=== PATIENT | female | born 1955 | race Caucasian/White ===

== ENCOUNTER 2017-06-02 08:32 | Day surgery (SDC) | payer BC ==
[2017-05-28 09:36] VITALS: BMI 34.7
[~2017-06-02 08:32] MED LIST: CLINDAMYCIN 900 MG in DEXTROSE 5% IN WATER 50 ML IVPB ONE; DEXAMETHASONE SOD PHOSPHATE 10 MG/ML 1 ML VIAL IV ONE; LACTATED RINGERS 1,000 ML IV SCH; LIDOCAINE 1% 20 ML VIAL (10MG/ML) FOR IV START INTRADERMA PRN; MIDAZOLAM 2 MG/2 ML VIAL IV PRN; MORPHINE SULFATE 4 MG/0.8 ML SYRINGE (INJ) IV PRN; ONDANSETRON ODT 4 MG TAB PO ONE; SCOPOLAMINE 1.5MG/72HR PATCH TRANSDERM ONE; fentaNYL (PF) 50 MCG/ML 20 ML VIAL IVP PRN
[2017-06-02] MEDS ORDERED: ONDANSETRON 4 MG/2 ML VIAL IVP ONE (09:13)
[2017-06-02 09:22] LABS: Potassium 4.3 mmol/L (3.5-5.1)
[2017-06-02] MEDS ORDERED: MIDAZOLAM 2 MG/2 ML VIAL ONE ×2 (09:40→10:44)
[2017-06-02] MEDS ORDERED: fentaNYL (PF) 50 MCG/ML 2 ML AMP ONE (09:40)
[2017-06-02] MEDS ORDERED: MORPHINE SULFATE 4 MG/0.8 ML SYRINGE (INJ) IVP PRN ×3 (10:27)
[2017-06-02] MEDS ORDERED: TEMAZEPAM 15 MG CAP PO PRN (10:27)
[2017-06-02] MEDS ORDERED: SENNOSIDES-DOCUSATE SODIUM 1 EACH TAB PO PRN (10:27)
[2017-06-02] MEDS ORDERED: HYDROcodone/APAP 5-325MG 1 EACH TAB PO PRN ×2 (10:27)
[2017-06-02] MEDS ORDERED: hydrOXYzine PAMOATE 25 MG CAP PO PRN (10:27)
[2017-06-02] MEDS ORDERED: ONDANSETRON 4 MG/2 ML VIAL IVP PRN (10:27)
[2017-06-02] MEDS ORDERED: LACTATED RINGERS 1,000 ML IV SCH (10:30)
[2017-06-02] MEDS ORDERED: LIDOCAINE 1% INJ 10MG/ML (20 ML MDV) ONE (10:44)
[2017-06-02] MEDS ORDERED: PHENYLEPHRINE-0.9% NACL SYG 1 MG/10 ML SYRINGE ONE (10:44)
[2017-06-02] MEDS ORDERED: LABETALOL 5 MG/ML VIAL MDV ONE (10:44)
[2017-06-02] MEDS ORDERED: PROPOFOL 10 MG/ML 20 ML VIAL IV ONE (10:44)
[2017-06-02] MEDS ORDERED: ROPIVACAINE 5 MG/ML 30 ML VIAL ONE (10:44)
[2017-06-02] MEDS ORDERED: ePHEDrine SULFATE/0.9% NACL/PF 50 MG/5 ML SYRINGE IV ONE (10:44)
[2017-06-02] MEDS ORDERED: SUCCINYLCHOLINE CHLORIDE 100 MG/5 ML SYR IV ONE (10:44)
[2017-06-02] MEDS ORDERED: LACTATED RINGERS 1,000 ML IV ONE (11:10)
--- NOTE | 2017-06-02 12:30 | P.ONQ ---
Anesthesiology Proc Note - PNB - Peripheral Nerve Block Performed Left Interscalene Time Out Performed: Yes (09:35) Indication: Acute Post-Operative Pain, Requested by physician (Dr Khoury) Sedation Type: Sedate with meaningful contact maintained Preparation: Sterile Prep Position: Supine Catheter: None Needle Types: Other (see comment) (Leia) Needle Size: 50mm (2") Needle Gauge: 21 Technique: Ultrasound (0.5% Ropivacaine 12cc, 2.0% Lidocaine 12cc, 1:100,00 epi) Blood Aspirated: No Pain Paresthesia on Injection Noted: No Resistance on Injection: Normal Events: Uneventful and Well Tolerated
[2017-06-02 14:01] LABS: ALT 19 U/L (9-52); AST 19 U/L (14-36); Albumin 3.7 g/dL (3.5-5.0); Alkaline Phosphatase 66 U/L (38-126); Anion Gap 11 mmol/L; Blood Urea Nitrogen 14 mg/dL (7-17); Calcium 9.2 mg/dL (8.4-10.2); Carbon Dioxide 24 mmol/L (22-30); Chloride 108 mmol/L (98-107); Glucose 99 mg/dL (74-99); Sodium 143 mmol/L (137-145); Total Bilirubin 0.7 mg/dL (0.2-1.3); Total Protein 6.1 g/dL (6.3-8.2)
[2017-06-02 14:24] LABS: Basophils % (A) 0 %; Eosinophils % (A) 0 %; HCT 41.3 % (34.0-46.0); HGB 13.4 gm/dL (11.4-16.0); Lymphocytes # (A) 0.6 k/uL (1.0-4.8); Lymphocytes % (A) 6 %; MCH 31.5 pg (25.0-35.0); MCHC 32.5 g/dL (31.0-37.0); MCV 96.8 fL (80.0-100.0); Mean Platelet Volume 6.9; Monocytes # (A) 0.1 k/uL (0-1.0); Monocytes % (A) 1 %; Neutrophils # (A) 9.2 k/uL (1.3-7.7); Neutrophils % (A) 93 %; Platelet Count 226 k/uL (150-450); RBC 4.27 m/uL (3.80-5.40); RDW 13.5 % (11.5-15.5); WBC 9.9 k/uL (3.8-10.6)
--- NOTE | 2017-06-02 15:14 | HP ---
HISTORY AND PHYSICAL CHIEF COMPLAINTS: Hypertension, EKG changes. HISTORY OF PRESENT ILLNESS: This is a 61-year-old woman with a past medical history of no significant cardiovascular illness, had apparently a hiatal hernia with diaphragmatic eventration surgery in [facility] while the patient had multiple cardiac testing. The patient followed with Dr. Ta in the outpatient setting. and Dr. Khoury is planning to do a left rotator cuff repair today. The patient received ropivacaine and lidocaine plus epinephrine for regional anesthesia. Subsequently, patient developed blood pressure 255/150. The patient's preop blood pressure wass systolic 118.The patient was given a dose of labetalol, which brought the BP down to 80 systolic. Patient was given ephedrine and patient also had EKG changes in the form of ST depression in the monitor during that time. 12 lead EKG did not show any marked changes. The patient admitted for observation at this time. There is no history of fever, rigors. No history of headache, loss of consciousness. No chest pain. No palpitations. PAST MEDICAL HISTORY: History of hiatal hernia repair, history of tonsillectomy, history of DJD, anxiety. MEDICATIONS: Prior to admission include none. ALLERGIES: PENICILLIN, FAMILY HISTORY: No history of heart disease or strokes in the family. SOCIAL HISTORY: History of smoking. Occasional alcohol intake. REVIEW OF SYSTEMS: HEENT: No diminished hearing or vision. CARDIOVASCULAR: As mentioned earlier. RESPIRATORY: As mentioned earlier. GI: No nausea. : No dysuria/ NERVOUS SYSTEM: No numbness, weakness. ALLERGY/IMMUNOLOGY: No asthma or hay fever. MUSCULOSKELETAL: As mentioned earlier. HEMATOLOGY: No history of anemia. ENDOCRINE: No history of diabetes or hypothyroidism. CONSTITUTIONAL: As mentioned earlier. PHYSICAL EXAM: Alert and oriented x3. Blood pressure 114/57, respirations 16, temperature 98.8 , pulse ox 94% on 2 L. HEENT is mucosa moist, neck is no jugular venous distention. No lymph nodes. CARDIOVASCULAR: S1,S2. RESPIRATORY: Breath sounds diminished at the bases, no rhonchi, no crackles. ABDOMEN: Soft, nontender. No mass palpable. LEGS: No edema, no cyanosis. LYMPHATICS: None. SKIN: No ulcer, rash or bleeding. Left shoulder status post regional anesthesia. Left arm is still numb and weak and tired. LAB INVESTIGATIONS: Potassium 4.2. Other labs are ending. LABS: Pending, ASSESSMENT: 1. Hypertensive urgency as well as labile hypertension, hypotension post regional anesthesia with ropivacaine, lidocaine and epinephrine. 2. ST depressions in the EKG. 3. History of hiatal hernia repair apparently and as well as full cardiac workup at [facility]. 4. History of degenerative joint disease. 5. History of Yris fundoplication. 6. Anxiety. 7. History nicotine dependence. RECOMMENDATIONS AND DISCUSSION: This 61-year-old woman presented with multiple complex medical issues. Will monitor the patient closely, continue with the current management and symptomatic treatment. As this time, I recommend monitor closely observation, EKG troponins. Cardiology evaluation. Otherwise, symptomatic treatment will be provided. Will also obtain records from [facility]. Prognosis guarded. Further recommendations to follow. A copy of this will be forwarded to Dr. Ta who is the primary physician. MMMICKEYL / CHINTANN: [id number] / MTDD
[2017-06-02] MEDS ORDERED: CLINDAMYCIN 900 MG in DEXTROSE 5% IN WATER 50 ML IVPB SCH ×2 (18:00)
[2017-06-03 07:47] LABS: Basophils % (A) 0 %; Eosinophils # (A) 0.1 k/uL (0-0.7); Eosinophils % (A) 0 %; HCT 37.1 % (34.0-46.0); Lymphocytes # (A) 1.5 k/uL (1.0-4.8); Lymphocytes % (A) 10 %; MCH 31.8 pg (25.0-35.0); MCHC 32.3 g/dL (31.0-37.0); MCV 98.5 fL (80.0-100.0); Mean Platelet Volume 7.2; Monocytes # (A) 0.7 k/uL (0-1.0); Monocytes % (A) 5 %; Neutrophils # (A) 12.8 k/uL (1.3-7.7); Neutrophils % (A) 84 %; Platelet Count 239 k/uL (150-450); RBC 3.76 m/uL (3.80-5.40); RDW 13.6 % (11.5-15.5); WBC 15.2 k/uL (3.8-10.6)
[2017-06-03 08:00] VITALS: PULSE 78; RESP 18
[2017-06-03 08:17] LABS: Anion Gap 10 mmol/L; Blood Urea Nitrogen 14 mg/dL (7-17); Calcium 9.4 mg/dL (8.4-10.2); Carbon Dioxide 29 mmol/L (22-30); Chloride 107 mmol/L (98-107); Cholesterol 168 mg/dL (<200); Glucose 115 mg/dL (74-99); HDL Cholesterol 53 mg/dL (40-60); LDL Cholesterol,Calculated 103 mg/dL (0-99); Potassium 4.1 mmol/L (3.5-5.1); Sodium 146 mmol/L (137-145); Triglycerides 61 mg/dL (<150)
--- NOTE | 2017-06-03 11:06 | ECHOF ---
Referral Reason:hypertension MEASUREMENTS -------- HEIGHT: 157.5 cm WEIGHT: 86.2 kg BP: 139/63 RVIDd: 2.5 cm (< 3.3) IVSd: 1.2 cm (0.6 - 1.1) LVIDd: 4.1 cm (3.9 - 5.3) LVPWd: 1.2 cm (0.6 - 1.1) IVSs: 1.7 cm LVIDs: 2.8 cm LVPWs: 1.6 cm LA Diam: 3.6 cm (2.7 - 3.8) Ao Diam: 2.8 cm (2.0 - 3.7) AV Cusp: 1.9 cm (1.5 - 2.6) LA Diam: 3.5 cm (2.7 - 3.8) MV EXCURSION: 21.866 mm (> 18.000) MV EF SLOPE: 83 mm/s (70 - 150) EPSS: 0.3 cm MV E Orlando: 0.49 m/s MV DecT: 263 ms MV A [place]: 1.10 m/s MV E/A Ratio: 0.44 AV maxP.71 mmHg AV meanP.37 mmHg RAP: 5.00 mmHg RVSP: 16.94 mmHg FINDINGS -------- Sinus rhythm. This was a technically adequate study. The left ventricular size is normal. There is mild concentric left ventricular hypertrophy. Overa ll left ventricular systolic function is normal with, an EF between 55 - 60 %. The right ventricle is normal in size. The left atrial size is normal. The right atrial size is normal. There is mild aortic valve sclerosis. There is mild aortic stenosis present. Peak/mean gradient a cross the Aortic Valve is 20.71mmHg / 9.37mmHg. Mild mitral annular calcification present. Mild mitral regurgitation is present. Mild tricuspid regurgitation present. There is no evidence of pulmonary hypertension. The right v entricular systolic pressure, as measured by Doppler, is 16.94mmHg. Trace/mild (physiologic) pulmonic regurgitation. The aortic root size is normal. There is no pericardial effusion. CONCLUSIONS -------- 1. The left ventricular size is normal. 2. There is mild concentric left ventricular hypertrophy. 3. Overall left ventricular systolic function is normal with, an EF between 55 - 60 %. 4. There is mild aortic valve sclerosis. 5. There is mild aortic stenosis present. 6. Peak/mean gradient across the Aortic Valve is 20.71mmHg / 9.37mmHg. 7. Mild mitral annular calcification present. 8. Mild mitral regurgitation is present. 9. Mild tricuspid regurgitation present. 10. There is no evidence of pulmonary hypertension. 11. The right ventricular systolic pressure, as measured by Doppler, is 16.94mmHg. 12. Trace/mild (physiologic) pulmonic regurgitation. 13. The aortic root size is normal. 14. There is no pericardial effusion. PBX MECHANIC: Ledy Fuentes RDCS
[2017-06-03 11:54] VITALS: BP 120/72; TEMP 98.7
--- NOTE | 2017-06-03 12:12 | P.CRDCN ---
History of Present Illness Consult date: 06/03/17 History of present illness: Mrs. Car is a pleasant 61-year-old female past medical history significant for chronic tobacco use. She denies history of coronary artery disease, hypertension or dyslipidemia. She was scheduled to undergo rotator cuff repair yesterday with Dr. Khoury. She was taken into the OR and given ropivacaine, lidocaine and epinephrine for regional anesthesia. Subsequently her blood pressure went up to 255/[address] depression was noted on telemetry in lead II. Labetolol was administered and her blood pressure went down to [address] depression resolved. EKG was obtained and ST depression was resolved. She was sleeping at the time of all this and is unable to verbalize any symptoms at all. Upon waking up she denies symptoms of chest pain, shortness of breath, dizziness, palpitations, nausea, vomiting or diaphoresis. She states she underwent surgery at [place] last year around and underwent stress testing and echocardiolgraphy at that time which was unremarkable. Telemetry tracings since the event have been unremarkable, repeat EKG shows no signs of ST depression and is sinus mechanism. Blood pressures have been well controlled. Laboratory data reviewed, WBC 15.2, hemoglobin 12.0, platelets 239, sodium 146, potassium 4.1, cardiac enzymes negative 2, LDL 103. She takes no daily medications. Review of Systems At the time of my exam: CONSTITUTIONAL: Denies fever. Denies chills. EYES: Denies blurred vision. Denies vision changes. Denies eye pain. EARS, NOSE, MOUTH & THROAT: Denies headache. Denies sore throat. Denies ear pain. CARDIOVASCULAR: Denies chest pain. Denies shortness of breath. Denies orthopnea. Denies PND. Denies palpitations. RESPIRATORY: Denies cough. GASTROINTESTINAL: Denies abdominal pain. Denies diarrhea. Denies constipation. Denies nausea. Denies vomiting. MUSCULOSKELETAL: Denies myalgias. INTEGUMENTARY: Denies pruitis. Denies rash. NEUROLOGIC: Denies numbness. Denies tingling. Denies weakness. PSYCHIATRIC: Denies anxiety. Denies depression. ENDOCRINE: Denies fatigue. Denies weight change. Denies polydipsia. Denies polyurina. GENITOURINARY: Denies burning, hematuria or urgency with micturation. HEMATOLOGIC: Denies history of anemia. Denies bleeding. Past Medical History Past Medical History: No Reported History History of Any Multi-Drug Resistant Organisms: None Reported Past Surgical History: Orthopedic Surgery, Tonsillectomy Additional Past Surgical History / Comment(s): RT ROTATOR CUFF REPAIR. RT CATARACT REMOVED. WILLIAMS PROCEDURE. COLONOSCOPY AND EGD Past Anesthesia/Blood Transfusion Reactions: No Reported Reaction Past Psychological History: Anxiety Additional Psychological History / Comment(s): NOT CURRENTLY ON ANY MEDS Smoking Status: Current every day smoker Past Alcohol Use History: Occasional Additional Past Alcohol Use History / Comment(s): SMOKES 1PPD FROM AGE 16 TO 36 QUIT FOR 10 YEARS AND STARTED UP AGAIN. TRYING TO QUIT. TO GET NICOTINE PATCH FROM DOCTOR Past Drug Use History: None Reported - Past Family History Mother Family Medical History: No Reported History Medications and Allergies Home Medications Medication Instructions Recorded Confirmed Type Multivitamins, Thera [Multivitamin 1 tab PO DAILY 06/02/17 06/02/17 History (formulary)] Allergies Allergy/AdvReac Type Severity Reaction Status Date / Time Penicillins Allergy Anaphylaxis Verified 06/02/17 08:50 Physical Exam Vitals: Vital Signs Temp Pulse Resp BP BP Pulse Ox 06/03/17 11:20 98.7 F 78 18 120/72 98 06/03/17 07:30 97.9 F 78 18 149/59 95 06/03/17 03:51 84 16 06/03/17 03:44 98.2 F 87 16 124/61 96 06/03/17 00:00 94 18 06/02/17 23:56 99.0 F 82 18 135/68 96 06/02/17 20:00 100 16 06/02/17 19:48 98.9 F 100 16 136/65 95 06/02/17 15:28 88 16 118/56 06/02/17 14:00 84 136/61 06/02/17 13:45 78 136/61 94 L 06/02/17 13:30 83 142/64 94 L 06/02/17 13:15 82 141/74 93 L 06/02/17 12:45 75 16 122/60 96 06/02/17 12:32 73 16 115/59 95 06/02/17 12:19 76 16 114/57 94 L 06/02/17 12:00 80 16 122/73 94 L Intake and Output 06/02/17 06/03/17 06/03/17 22:59 06:59 14:59 Intake Total 936 150 Balance 936 150 Intake: Oral 936 150 Other: Voiding Method Toilet Toilet # Voids 2 2 Blood pressure 149/59 heart rate 78 afebrile maintaining oxygen saturation on room air. GENERAL: This is a 61-year-old female in no apparent distress at the time of my examination. HEENT: Head is atraumatic, normocephalic. Pupils are equal, round. Sclerae anicteric. Conjunctivae are clear. Mucous membranes of the mouth are moist. Neck is supple. There is no jugular venous distention. No carotid bruit is heard. LUNGS: Clear to auscultation no wheezes, rales or rhonchi. No chest wall tenderness is noted on palpation or with deep breathing. HEART: Regular rate and rhythm without murmurs, rubs or gallops. S1 and S2 heard. ABDOMEN: Soft, nontender. Bowel sounds are heard. No organomegaly noted. EXTREMITIES: No evidence of peripheral edema and no calf tenderness noted. VASCULAR: Radial and dorsalis pedis pulses palpated, no evidence of clubbing. NEUROLOGIC: Patient is awake, alert and oriented x3. Results 06/03/17 07:05 06/03/17 07:05 Cardiac Enzymes 06/02/17 06/02/17 06/03/17 Range/Units 09:00 09:00 07:05 AST 19 (14-36) U/L Troponin I <0.012 <0.012 (0.000-0.034) ng/mL Lipids 06/03/17 Range/Units 07:05 Triglycerides 61 (<150) mg/dL Cholesterol 168 (<200) mg/dL HDL Cholesterol 53 (40-60) mg/dL CBC 06/02/17 06/03/17 Range/Units 13:54 07:05 WBC 9.9 15.2 H (3.8-10.6) k/uL RBC 4.27 3.76 L (3.80-5.40) m/uL Hgb 13.4 12.0 (11.4-16.0) gm/dL Hct 41.3 37.1 (34.0-46.0) % Plt Count 226 239 (150-450) k/uL Comprehensive Metabolic Panel 06/02/17 06/03/17 Range/Units 09:00 07:05 Sodium 143 146 H (137-145) mmol/L Potassium 4.3 4.1 (3.5-5.1) mmol/L Chloride 108 H 107 (98-107) mmol/L Carbon Dioxide 24 29 (22-30) mmol/L BUN 14 14 (7-17) mg/dL Creatinine 0.78 0.80 (0.52-1.04) mg/dL Glucose 99 115 H (74-99) mg/dL Calcium 9.2 9.4 (8.4-10.2) mg/dL AST 19 (14-36) U/L ALT 19 (9-52) U/L Alkaline Phosphatase 66 (38-126) U/L Total Protein 6.1 L (6.3-8.2) g/dL Albumin 3.7 (3.5-5.0) g/dL Current Medications Generic Name Dose Route Start Last Admin Trade Name Freq PRN Reason Stop Dose Admin Lidocaine HCl 0.1 ml 06/02/17 05:28 06/02/17 09:12 .Xylocaine 1% Inj (10mg/Ml) For Iv Start INTRADERMA 0.1 ml PER PROTOCOL PRN Administration IV Start Intake and Output 06/02/17 06/03/17 06/03/17 22:59 06:59 14:59 Intake Total 936 150 Balance 936 150 Intake: Oral 936 150 Other: Voiding Method Toilet Toilet # Voids 2 2 06/03/17 07:05 06/03/17 07:05 Assessment and Plan Assessment: ASSESSMENT 1. Isolated incident of elevated blood pressure, resolved with labetolol 2. ST depression in OR during elevated blood pressure episode after induction of anesthesia 3. Chronic tobacco use PLAN Obtain 2D echocardiogram and doppler study to assess cardiac structure and function. Remote incident of ST depression related to extremely elevated blood pressure that resolved quickly. Stable from a cardiac perspective, stress echocardiogram will be performed within a few days in the office as an outpatient. Plan has been discussed with the patient. Smoking cessation discussed and strongly recommended. Thank you kindly for this consultation. The above impression and plan of care have been discussed and directed by the signing physician. Marianna Eid, nurse practitioner, acting as scribe for signing physician.
--- NOTE | 2017-06-04 11:33 | DS ---
DISCHARGE SUMMARY FINAL DIAGNOSES: 1. Hypertensive urgency as well as labile hypertension with hypotension, status post regional anesthesia with ropivacaine, lidocaine and epinephrine. 2. History of paraesophageal hiatal hernia repair as well as full cardiac workup at [facility]. 3. History of degenerative joint disease. 4. History of Yris fundoplication. 5. Anxiety. 6. History of nicotine dependence. DISCHARGE DISPOSITION: The patient will be discharged in stable condition with guarded prognosis. Cardiology cleared the patient for discharge. HISTORY OF PRESENT ILLNESS: This 61-year-old woman with past medical history of multiple medical problems was admitted with hypertensive urgency as well as CT changes during the anesthesia injection. The patient was monitored closely. Troponins are negative. Patient symptomatic and Cardiology recommended outpatient stress test. On exam, vitals are stable. CARDIOVASCULAR SYSTEM: S1, S2 muffled. ABDOMEN: Soft. NERVOUS SYSTEM: No focal deficit. DISCHARGE ADVICE AND MEDICATIONS: 1. Diet is cardiac. 2. Activity limited until followup. 3. Follow up with primary physician in 2-3 days. 4. Follow up with assurance analyst as recommended. 5. Continue multivitamins 1 p.o. daily. 6. Resume the home medications. 7. Follow up with Dr. Khoury for further recommendations for surgery after the cardiac workup. Once again, the patient will be discharged in stable condition with guarded prognosis. MMODL / IJN: [id number] / RIKI
--- NOTE | 2017-06-04 12:00 | CONS ---
CONSULTATION Ms. Car was in the surgical suite and left shoulder. During the in preparation on the surgical table, she had cardiopulmonary situation and in view of the drop in the blood pressure and associated abnormalities, the surgery was cancelled. She is admitted for further evaluation by the Department of Cardiology and will be rescheduled at further convenience for her following this evaluation per the . MMODL / IJN: [id number] /
== END 2017-06-03 13:50 | disposition home or self-care (01) ==
LOC: OR 08:32 → EDSTATUS 10:55 → 3OBS 11:59 → OR 06-03 13:50
PROVIDERS: ATTEND Orthopaedic Surgery
DX: I16.0 Hypertensive urgency (principal); Z53.8 Procedure and treatment not carried out for other reasons; I44.0 Atrioventricular block, first degree; I08.3 Combined rheumatic disorders of mitral, aortic and tricuspid valves; S43.422A Sprain of left rotator cuff capsule, initial encounter; X58.XXXA Exposure to other specified factors, initial encounter; M75.42 Impingement syndrome of left shoulder; M65.812 Other synovitis and tenosynovitis, left shoulder; M75.52 Bursitis of left shoulder; M75.22 Bicipital tendinitis, left shoulder; M19.012 Primary osteoarthritis, left shoulder; F40.248 Other situational type phobia; E66.9 Obesity, unspecified; Z68.35 Body mass index [BMI] 35.0-35.9, adult; Z82.49 Family history of ischemic heart disease and other diseases of the circulatory system; Z79.1 Long term (current) use of non-steroidal anti-inflammatories (NSAID); Z79.891 Long term (current) use of opiate analgesic; Z79.52 Long term (current) use of systemic steroids; F17.210 Nicotine dependence, cigarettes, uncomplicated; Z88.0 Allergy status to penicillin; Z88.8 Allergy status to other drugs, medicaments and biological substances; Z91.09 Other allergy status, other than to drugs and biological substances
CPT/HCPCS: 93306; 93005; 64415; 80061; 80053; 80048; 84484 ×2; 85025 ×2; 29827; 29826; 29824; J2250; J1100; J2405; J2001; J2795; J2370; J0330; J2704

== ENCOUNTER → 2017-06-15 | Outpatient (CLI) | payer BC ==
[~2017-06-15] MED LIST changes: -CLINDAMYCIN 900 MG in DEXTROSE 5% IN WATER 50 ML IVPB ONE; -DEXAMETHASONE SOD PHOSPHATE 10 MG/ML 1 ML VIAL IV ONE; -LACTATED RINGERS 1,000 ML IV SCH; -LIDOCAINE 1% 20 ML VIAL (10MG/ML) FOR IV START INTRADERMA PRN; -MIDAZOLAM 2 MG/2 ML VIAL IV PRN; +MIDAZOLAM 2 MG/2 ML VIAL ONE; -MORPHINE SULFATE 4 MG/0.8 ML SYRINGE (INJ) IV PRN; +ONDANSETRON 4 MG/2 ML VIAL ONE; -ONDANSETRON ODT 4 MG TAB PO ONE; -SCOPOLAMINE 1.5MG/72HR PATCH TRANSDERM ONE; -fentaNYL (PF) 50 MCG/ML 20 ML VIAL IVP PRN
[2017-06-15 11:50] LABS: Basophils % (A) 0 %; Eosinophils # (A) 0.3 k/uL (0-0.7); Eosinophils % (A) 3 %; Lymphocytes # (A) 2.5 k/uL (1.0-4.8); Lymphocytes % (A) 29 %; MCH 31.4 pg (25.0-35.0); MCHC 32.6 g/dL (31.0-37.0); MCV 96.4 fL (80.0-100.0); Mean Platelet Volume 6.5; Monocytes # (A) 0.4 k/uL (0-1.0); Monocytes % (A) 4 %; Neutrophils # (A) 5.3 k/uL (1.3-7.7); Neutrophils % (A) 61 %; Platelet Count 309 k/uL (150-450); RBC 4.46 m/uL (3.80-5.40); RDW 13.7 % (11.5-15.5); WBC 8.6 k/uL (3.8-10.6)
== END | disposition home or self-care (01) ==
LOC: LABWHC1 10:55
PROVIDERS: ATTEND Nurse Practitioner
DX: D72.829 Elevated white blood cell count, unspecified (principal)
CPT/HCPCS: 36415; 85025

== ENCOUNTER 2017-06-16 06:31 | Day surgery (SDC) | payer BC ==
[2017-06-11 15:49] VITALS: BMI 36.2
[~2017-06-16 06:31] MED LIST changes: +CLINDAMYCIN 900 MG in DEXTROSE 5% IN WATER 50 ML IVPB ONE; +DEXAMETHASONE SOD PHOSPHATE 10 MG/ML 1 ML VIAL IV ONE; +MIDAZOLAM 2 MG/2 ML VIAL IV PRN; -MIDAZOLAM 2 MG/2 ML VIAL ONE; -ONDANSETRON 4 MG/2 ML VIAL ONE; +ONDANSETRON ODT 4 MG TAB PO ONE; +SCOPOLAMINE 1.5MG/72HR PATCH TRANSDERM ONE; +fentaNYL (PF) 50 MCG/ML 2 ML AMP IV PRN
[2017-06-16] MEDS ORDERED: LACTATED RINGERS 1,000 ML IV ONE (06:57)
[2017-06-16] MEDS ORDERED: ONDANSETRON 4 MG/2 ML VIAL IVP ONE (06:58)
[2017-06-16] MEDS ORDERED: fentaNYL (PF) 50 MCG/ML 2 ML AMP ONE (07:51)
[2017-06-16] MEDS ORDERED: SUCCINYLCHOLINE CHLORIDE 100 MG/5 ML SYR IV ONE (07:51)
[2017-06-16] MEDS ORDERED: LIDOCAINE 2%-EPI 1:100,000 20 ML VIAL ONE (07:51)
[2017-06-16] MEDS ORDERED: MIDAZOLAM 2 MG/2 ML VIAL ONE (07:51)
[2017-06-16] MEDS ORDERED: LIDOCAINE 1% INJ 10MG/ML (20 ML MDV) ONE (07:51)
[2017-06-16] MEDS ORDERED: ROPIVACAINE 5 MG/ML 30 ML VIAL ONE (07:51)
[2017-06-16] MEDS ORDERED: ePHEDrine SULFATE/0.9% NACL/PF 50 MG/5 ML SYRINGE IV ONE (07:51)
[2017-06-16] MEDS ORDERED: PROPOFOL 10 MG/ML 20 ML VIAL IV ONE (07:51)
[2017-06-16] MEDS ORDERED: CLINDAMYCIN 600 MG in SODIUM CHLORIDE 0.9% 1,000 ML IRRIGATION ONE (08:20)
[2017-06-16] MEDS ORDERED: ONDANSETRON 4 MG/2 ML VIAL IVP PRN (09:15)
[2017-06-16] MEDS ORDERED: TEMAZEPAM 15 MG CAP PO PRN (09:15)
[2017-06-16] MEDS ORDERED: SENNOSIDES-DOCUSATE SODIUM 1 EACH TAB PO PRN (09:15)
[2017-06-16] MEDS ORDERED: HYDROcodone/APAP 5-325MG 1 EACH TAB PO PRN (09:15)
[2017-06-16] MEDS ORDERED: MORPHINE SULFATE 4 MG/ML SYRINGE IVP PRN ×3 (09:15)
[2017-06-16] MEDS: LACTATED RINGERS 1,000 ML IV SCH ×3 (09:52→20:57)
[2017-06-16] MEDS ORDERED: ALPRAZolam 0.25 MG TAB PO PRN (11:26)
--- NOTE | 2017-06-16 15:48 | P.ONQ ---
Anesthesiology Proc Note - PNB - Peripheral Nerve Block Performed Left Interscalene Single Time Out Performed: Yes (0715) Procedure Start Time: :15 Procedure Stop Time: :20 Indication: Acute Post-Operative Pain, Dx/Pain Location (Left Shoulder Pain), Requested by physician Sedation Type: Sedate with meaningful contact maintained Preparation: Sterile Prep Catheter: None Needle Types: On-Q Needle Size: 50mm (2") Needle Gauge: 21 Technique: Ultrasound Injectate: 0.5% Ropivacaine (see comment for volume) (20ml) Blood Aspirated: No Pain Paresthesia on Injection Noted: No Resistance on Injection: Normal Events: Uneventful and Well Tolerated
[2017-06-16] MEDS: CLINDAMYCIN 900 MG in DEXTROSE 5% IN WATER 50 ML IVPB SCH ×4 (15:53→23:45)
[2017-06-16] MEDS: hydrOXYzine PAMOATE 25 MG CAP PO PRN (20:31)
[2017-06-16] MEDS: HYDROcodone/APAP 5-325MG 1 EACH TAB PO PRN (20:32)
[2017-06-16] MEDS: NICOTINE 14MG/24HR PATCH TRANSDERM SCH (20:41)
--- NOTE | 2017-06-16 22:57 | CONS ---
CONSULTATION DATE OF SERVICE: 06/16/2017. REASON FOR CONSULTATION: Advice regarding hypertension and other multiple medical issues, requested by Orthopedic Surgery. HISTORY OF PRESENT ILLNESS: This 65-year-old woman with a past medical multiple medical problems including DJD and tonsillectomy, was recently admitted after hypertensive urgency with hypotension after regional anesthesia. The patient has a history of hiatal hernia and had a full cardiac workup done at [facility]. Currently the patient underwent left shoulder arthroplasty. The patient was admitted for evaluation and treatment. The blood pressures were slightly elevated, but currently is 130/84. There is no history of fevers or rigors. No history of headache, loss of consciousness, or seizures. PAST MEDICAL HISTORY: History of recent hypertension, history of DJD, history of hiatal hernia repair. MEDICATIONS: 1. Multivitamins 1 p.o. daily. 2. Senna two tabs p.o. daily. 3. Hydrocodone 1 to 2 tabs every 4 hours p.r.n. ALLERGIES: PENICILLIN. FAMILY HISTORY: No history of heart disease or strokes in family. SOCIAL HISTORY: History of smoking. Occasional alcohol. REVIEW OF SYSTEMS: ENT: No diminished vision or hearing. CARDIOVASCULAR: No angina. RESPIRATORY: As mentioned earlier. GI: No nausea. : No dysuria. NERVOUS SYSTEM: No numbness or weakness. ALLERGY/IMMUNOLOGY: As mentioned. DERMATOLOGY: No history of anemia. ENDOCRINE: No history of diabetes or hypothyroidism. CONSTITUTIONAL: As mentioned. DERMATOLOGIC: Negative. PSYCHIATRY: As mentioned earlier. PHYSICAL EXAM: Patient is alert, oriented x3. The pulse is 105, blood pressure 130/84, respirations 16, temperature 98.1, pulse ox 96% room air. HEENT: Conjunctivae normal. NECK: No JVD. CARDIOVASCULAR: S1 and S2 muffled. RESPIRATORY: Breath sounds diminished at the bases. No rhonchi, no crackles. ABDOMEN: Soft, nontender. No mass palpable. LEGS: No edema, no swelling. NERVOUS SYSTEM: Higher functions as mentioned earlier. Moves all 4 limbs. No focal motor or sensory deficits. LYMPHATICS: No lymph nodes palpable in the neck, axillae or groin. SKIN: No ulcer, rash, bleeding. LAB INVESTIGATIONS: Prior to admission, CBC within normal limits. Vitamin D 15.7. ASSESSMENT: 1. Status post left shoulder arthroplasty. 2. History of labile hypertension. 3. History of vitamin D deficiency. 4. History of recent hypertensive urgency preoperatively. 5. History of degenerative joint disease. 6. History of anxiety. 7. History of nicotine dependence. RECOMMENDATIONS AND DISCUSSION: In this 61-year-old woman who presented with multiple complex medical issues, will monitor the patient closely, continue the current management and symptomatic treatment. At this time I recommend monitoring the blood pressure closely. Xanax p.r.n., DVT prophylaxis. We will follow the patient closely with you. Resume the home medications. We will follow the patient closely. The patient may be asked to follow up with primary physician closely. Thank you, Dr. Khoury. MOSES / CHINTANN: [id number] / RIKI
[2017-06-17] MEDS: HYDROcodone/APAP 5-325MG 1 EACH TAB PO PRN ×3 (03:15→14:20)
[2017-06-17] MEDS: hydrOXYzine PAMOATE 25 MG CAP PO PRN ×3 (03:15→14:20)
[2017-06-17] MEDS: LACTATED RINGERS 1,000 ML IV SCH ×2 (04:58)
--- NOTE | 2017-06-17 08:33 | P.DS ---
Providers Expected date of discharge: 06/17/17 Attending physician: Jeffrey Khoury Consults: 06/16/17 09:15 Consult Physician Routine Consulting Provider: Renetta Ta Consult Reason/Comments: medical management Do you want consulting provider notified?: Yes 06/16/17 10:06 Consult Physician Routine Consulting Provider: Roland Morin Consult Reason/Comments: Medical management Do you want consulting provider notified?: Yes Primary care physician: Stated None - Discharge Diagnosis(es) (1) Rotator cuff tear, left Current Visit: Yes Status: Acute (2) Status post left rotator cuff repair Current Visit: Yes Status: Acute Hospital Course: This is a 61-year-old female with known history of chronic impingement syndrome of the left shoulder. The patient presented to the orthopedic office for evaluation. After discussion and consideration patient elects to proceed with a rotator cuff repair. The patient is seen preoperatively by her primary care physician and cardiology and cleared for surgery. Patient is admitted to observation at [facility] on 06/16/2017 for left shoulder rotator cuff repair with distal clavicle excision and acromioplasty. The procedures performed without complication or sequelae. The patient is doing well postoperatively. Labs and vital signs are stable on day of discharge. On day of discharge patient's shoulder incision is healing well. There is minimal erythema. There is no drainage noted at this time. There is minimal soft tissue swelling to the right upper extremity. Patient has full hand, wrist , and elbow motion without difficulty or pain. Neurovascular status to the left upper extremity is intact. Patient is discharged to home in good condition. Patient Condition at Discharge: Stable Plan - Discharge Summary Discharge Rx Participant: Yes New Discharge Prescriptions: New HYDROcodone/APAP 5-325MG [Energy 5] 1 - 2 each PO Q4-6H PRN #60 tab PRN Reason: Pain Sennosides-Docusate Sodium [Senokot-S] 2 tab PO DAILY #30 tablet hydrOXYzine PAMOATE [Vistaril] 25 mg PO TID PRN #60 cap PRN Reason: Pain No Action Multivitamins, Thera [Multivitamin (formulary)] 1 tab PO DAILY Discharge Medication List Multivitamins, Thera [Multivitamin (formulary)] 1 tab PO DAILY 06/02/17 [History ] HYDROcodone/APAP 5-325MG [Energy 5] 1 - 2 each PO Q4-6H PRN #60 tab 06/16/17 [Rx] Sennosides-Docusate Sodium [Senokot-S] 2 tab PO DAILY #30 tablet 06/16/17 [Rx] hydrOXYzine PAMOATE [Vistaril] 25 mg PO TID PRN #60 cap 06/17/17 [Rx] Follow up Appointment(s)/Referral(s): Jeffrey Khoury DO [Doctor of Osteopathic Medicine] - 07/02/17 8:30 am Patient Instructions/Handouts: Rotator Cuff Tear Repair (DC) Activity/Diet/Wound Care/Special Instructions: Keep incision clean and dry Change dressing daily May shower in 3 days if no drainage from incision Keep arm sling/abductor pillow in place except when bathing Follow up with Dr. Khoury in 2 weeks. [facility] with any questions or concerns. [phone] Discharge Disposition: HOME SELF-CARE
[2017-06-17 08:50] VITALS: BP 143/81; PULSE 87; RESP 16; TEMP 98.6
[2017-06-17] MEDS ORDERED: MULTIVITAMINS, THERA 1 EACH TAB PO SCH (09:00)
[2017-06-17] MEDS: NICOTINE 14MG/24HR PATCH TRANSDERM SCH (09:01)
[2017-06-17] MEDS ORDERED: HYDROmorphone 2 MG TAB PO PRN ×2 (12:04→12:05)
[2017-06-17] MEDS ORDERED: HYDROmorphone 4 MG TABLET PO PRN (12:06)
--- NOTE | 2017-06-17 15:52 | PN ---
PROGRESS NOTE DATE OF SERVICE: 06/17/2017 This 61-year-old woman who was admitted after left shoulder arthroplasty also had labile hypertension. No chest pain. No palpitations. No fever. Patient is improving significantly. On exam, alert and oriented x3. Pulse 87, blood pressure 143/81, respiration 16, temperature 98.6, pulse ox 98% on room air. HEENT: Conjunctivae normal. NECK: No jugular venous distention. CARDIOVASCULAR SYSTEM: S1, S2 muffled. RESPIRATORY SYSTEM: Breath sounds diminished at the bases. No rhonchi. No crackles. ABDOMEN: Soft, non-tender. LEGS: No edema. No swelling. EXAMINATION OF LEFT SHOULDER: Status post arthroplasty. NERVOUS SYSTEM: No focal deficit. Labs are not available. ASSESSMENT: 1. Status post left shoulder arthroplasty. 2. Labile hypertension. 3. Vitamin D deficiency, history. 4. History of recent hypertensive urgency preoperatively. 5. History of degenerative joint disease. 6. History of anxiety. 7. History of nicotine dependence. RECOMMENDATIONS AND DISCUSSION: I recommend to continue current medication, continue symptomatic treatment. I recommend that the patient follow up with the primary physician closely regarding the above- mentioned medical issues. I would also recommend the rest of the recommendations per Orthopedic Surgery. Monitor blood pressure closely at home and check with the primary physician. Family understands. MMODL / IJN: [id number] /
--- NOTE | 2017-06-18 10:50 | OP ---
OPERATIVE REPORT DATE OF SERVICE: 06/16/2017 SURGEON: Jeffrey Khoury DO. THERAPY TECHNICIAN: Yee Awan NP. PREOPERATIVE DIAGNOSIS: Torn left rotator cuff. FINAL DIAGNOSIS: Torn left supraspinatus tendon and left rotator cuff (partial thickness tear). PROCEDURE: Resection of distal left clavicle, decompression acromioplasty, and rotator cuff repair. DESCRIPTION OF PROCEDURE: The patient was taken to the operative suite and placed in supine position. Regional block anesthesia was performed by the department of anesthesiology. General inhalation anesthesia was also initiated. The patient was placed in beach chair position, padded and appropriately secured. Betadine prep was carried out over the left shoulder. Sterile drapes were applied in the usual manner. A minimally invasive lateral incision was developed over the acromion. Sharp dissection was carried out through the subcutaneous tissue. The acromioclavicular was identified and distal 1 cm clavicle was excised with a bone saw. Anterior deltoid was released along the anterior lateral border. Coracoclavicular ligament was released. An anterior lateral decompression acromioplasty was performed. Acromion was shaped with bone saw and bone rasp. Direct visualization of the partial thickness tear identified. Deltoid was reapproximated utilizing a #1 Ethibond suture in a running fashion for approximating the tear and reenforcing the tear. The area was irrigated. The deltoid was then approximated anterior acromion with #1 Ethibond suture. Deep fascia was approximated with #1 Vicryl suture in running fashion. Subcutaneous tissue approximated with 2-0 Vicryl suture interrupted fashion. The skin was approximated with 3-0 Quill suture in subcuticular fashion. The incision was sealed with Dermabond. Betadine, adaptic and sterile pressure dressing was applied. The patient was placed in an abductor pillow split and transferred to recovery room in satisfactory postop condition. GROSS PATHOLOGY: There is evidence of left rotator cuff impingement with associated partial thickness tear of supraspinatus tendon. MMODL / IJN: [id number] / [facility]Kim
== END 2017-06-17 14:55 | disposition home or self-care (01) ==
LOC: OR 06:31 → 3SUR 09:09 → OR 06-17 14:55
PROVIDERS: ATTEND Orthopaedic Surgery
DX: M75.102 Unspecified rotator cuff tear or rupture of left shoulder, not specified as traumatic (principal); M75.42 Impingement syndrome of left shoulder; I16.0 Hypertensive urgency; F17.210 Nicotine dependence, cigarettes, uncomplicated; Z79.1 Long term (current) use of non-steroidal anti-inflammatories (NSAID); Z79.891 Long term (current) use of opiate analgesic; Z79.52 Long term (current) use of systemic steroids; Z88.0 Allergy status to penicillin; Z88.8 Allergy status to other drugs, medicaments and biological substances; Z91.048 Other nonmedicinal substance allergy status; M19.90 Unspecified osteoarthritis, unspecified site; Z96.612 Presence of left artificial shoulder joint
CPT/HCPCS: 64415; 23415; 23120; J2250; J1100; J2405; J2001; J3010; J2795; J0330; J2704

== ENCOUNTER → 2017-11-11 | Outpatient (CLI) | payer BC ==
--- NOTE | 2017-11-12 12:07 | CT ---
EXAMINATION TYPE: CT sinus wo con DATE OF EXAM: 11/11/2017 COMPARISON: None HISTORY: Headaches CT DLP: 599.8 mGycm. Automated Exposure Control for Dose Reduction was Utilized. TECHNIQUE: CT scan of the sinuses is performed without contrast, axial images are obtained, coronal r eformatted images are also reviewed. FINDINGS: The paranasal sinuses including the frontal, ethmoid, sphenoid, and maxillary sinuses bila terally are well-aerated, and there is some minimal mucoperiosteal thickening in the right maxillary sinus. The ostiomeatal complex is patent bilaterally on the coronal images. Visualized portion of mastoid air cells show no abnormal opacification. The globes are intact bilate rally. Cerebral vascular calcifications are present. Dolly bullosa present bilaterally. Cerebral va scular calcifications noted incidentally IMPRESSION: The sinuses are remarkable for minimal mucoperiosteal thickening right maxillary sinus
== END | disposition home or self-care (01) ==
LOC: RADCTMAIN 17:59
PROVIDERS: ATTEND Otolaryngology Otolaryngology/Facial Plastic Surgery
DX: J34.89 Other specified disorders of nose and nasal sinuses (principal)
CPT/HCPCS: 70486

== ENCOUNTER → 2018-08-17 | Outpatient (CLI) | payer MEDICARE ==
--- NOTE | 2018-08-18 11:31 | MM ---
Reason for exam: screening (asymptomatic). Last mammogram was performed 3 years and 4 months ago. History: Patient is postmenopausal. Physical Findings: A clinical breast exam by your physician is recommended on an annual basis and results should be correlated with mammographic findings. MG 3D Screening Mammo W/Cad Bilateral CC and MLO view(s) were taken. Prior study comparison: April 09, 2015, bilateral MG screening mammo w CAD. December 19, 2013, bilateral MG screening mammo w CAD. There are scattered fibroglandular densities. There is a stable left anterior depth lower inner quadrant mass. No suspicious abnormality. No significant changes when compared with prior studies. ASSESSMENT: Benign, BI-RAD 2 RECOMMENDATION: Routine screening mammogram of both breasts in 1 year.
== END | disposition home or self-care (01) ==
LOC: RADMAMWWP 08:26
PROVIDERS: ATTEND Family Medicine
DX: Z12.31 Encounter for screening mammogram for malignant neoplasm of breast (principal)
CPT/HCPCS: 77063; 77067

== ENCOUNTER → 2022-01-21 | Outpatient (CLI) | payer MEDICARE ==
--- NOTE | 2022-01-21 14:21 | BD ---
EXAMINATION TYPE: Axial Bone Density DATE OF EXAM: 01/21/2022 COMPARISON: 04/09/2015 CLINICAL HISTORY: 66 years year old Female. ICD-10 CODE: Z78.0 MENOPAUSAL Height: 62 Weight: 190 FRAX RISK QUESTIONS: Alcohol (3 or more units per day): NO Family History (Parent hip fracture): MOTHER Glucocorticoids (More than 3mos): NO History of Fracture in Adulthood: NO Secondary Osteoporosis: 1. Type 1 Diabetes: NO 2. Hyperthyroidism: NO 3. Menopause before 45: NO 4. Malnutrition: NO 5. Chronic liver disease: NO Rheumatoid Arthritis: NO Current Tobacco Use: NO RISK FACTORS HISTORY OF: Hip Fracture (Right/Left): NO Spine Fracture: NO History of Wrist Fracture: NO Surgery to Spine/Hip(right/left)/Wrist (right/left): NO Family History of Osteoporosis: NO Active: NO Diet low in dairy products/other sources of calcium: YES Lost more than 2 inches in height since high school: NO Frequent falls: NO Poor Health: NO Hyperparathyroidism: NO Adrenal Insufficiency: NO MEDICATIONS: Prednisone or other steroids: NO Thyroid Medications: NO Osteoporosis Medications: NO Additional Medications: DEPRESSION MEDS X2 EXAM MEASUREMENTS: Bone mineral densitometry was performed using the [employer] System. Bone mineral density as measured about the Lumbar spine is: ----- L1-L4(G/cm2): 1.302 T Score Values are as follows: ----- L1: 0.6 ----- L2: 1.2 ----- L3: 0.9 ----- L4: 0.9 ----- L1-L4: 1.0 Bone mineral density has: INCREASED 3.0 % since study of: 04/09/2015 Bone mineral density about the R hip (g/cm2): 0.921 Bone mineral density about the L hip (g/cm2): 0.836 T Score values are as follows: -----R Neck: -0.8 -----L Neck: -1.5 -----R Total: -0.7 -----L Total: 0.5 Bone mineral density has: DECREASED -2.9 % since study of: 04/09/2015 FRAX%s: The graph provided illustrates a 14.8% chance for a major osteoporotic fx and a 1.8% chance f or the hips probability for fx in 10 years time. IMPRESSION: Normal (Values between +1 and -1 indicate normal bone mass). Consider repeating this study in 5 year s or sooner if there is some new clinical indication. NOTE: T-SCORE=SD OF THE YOUNG ADULT MEAN.
--- NOTE | 2022-01-24 12:11 | MM ---
Reason for Exam: Screening (asymptomatic). Last mammogram was performed 3 year(s) and 5 month(s) ago. Patient History: Menarche at age 10. First Full-Term at age 17. Postmenopausal. Sister had breast cancer at or over age 50. Risk Values: Gisel 5 year model risk: 3.2%. NCI Lifetime model risk: 10.1%. Prior Study Comparison: 12/19/2013 Bilateral Screening Mammogram, [facility]. 04/09/2015 Bilateral Screening Mammogram, [facility]. 08/17/2018 Bilateral Screening Mammogram, [facility]. Tissue Density: There are scattered fibroglandular densities. Findings: Analyzed By CAD. Stable oval circumscribed 10 mm lesion in the anterior right breast medial inferior aspect. Benign appearing bilateral axillary lymph nodes are redemonstrated. Stable smaller oval 6 mm circumscribed lesion in the left breast anteriorly. There is no suspicious group of microcalcifications or new suspicious mass in either breast. Overall Assessment: Benign, BI-RAD 2 Management: Screening Mammogram of both breasts in 1 year. A clinical breast exam by your physician is recommended on an annual basis and results should be correlated with mammographic findings. Electronically signed and approved by: Kb Anderson M.D.
== END | disposition home or self-care (01) ==
LOC: RADMAMWWP 11:58
PROVIDERS: ATTEND Family Medicine
DX: Z12.31 Encounter for screening mammogram for malignant neoplasm of breast (principal); M85.851 Other specified disorders of bone density and structure, right thigh; Z78.0 Asymptomatic menopausal state; Z80.3 Family history of malignant neoplasm of breast
CPT/HCPCS: 77063; 77067; 77080